=== PATIENT | female | born 1980 | race African-American/Black ===

== ENCOUNTER 2018-10-25 05:56 | Emergency (ER) | payer OTHER ==
[~2018-10-25] VITALS: Ht 167.6 cm; Wt 100.0 kg
[2018-10-25] MEDS ORDERED: NS 1,000 ML IV ONE (06:30)
[2018-10-25 07:02] LABS: BASO % 0.5 % (0.0-1.0); EOS # 0.2 10^3/uL (0.0-0.50); EOS % 3.2 % (0.0-3.0); HEMATOCRIT 38.3 % (36.0-47.0); HEMOGLOBIN 12.8 g/dl (12.0-15.5); LYMPH # 1.3 10^3/uL (1.5-4.5); LYMPH % 21.2 % (24.0-44.0); MEAN CORPUSCULAR HEMOGLOBIN 28.8 pg (27.0-33.0); MEAN CORPUSCULAR HGB CONC 33.4 g/dl (32.0-36.5); MEAN CORPUSCULAR VOLUME 86.3 fl (80.0-96.0); MONO # 0.4 10^3/uL (0.0-0.8); MONO % 6.3 % (0.0-5.0); NEUTROPHILS # 4.2 10^3/uL (1.8-7.7); NEUTROPHILS % 68.2 % (36.0-66.0); PLATELET COUNT, AUTOMATED 124 10^3/uL (150-450); RED BLOOD COUNT 4.44 10^6/uL (4.00-5.40); WHITE BLOOD COUNT 6.2 10^3/uL (4.0-10.0)
[2018-10-25 08:23] VITALS: BP 130/77
--- NOTE | 2018-10-25 08:44 | REPVR ---
EXAM: US Duplex Artery and Vein of the Abdominal and/or Reproductive Organs, Complete EXAM DATE/TIME: 10/25/2018 7:41 AM CLINICAL HISTORY: 38 years old, female; Signs and symptoms; Lmp or gestational age (in weeks): 17; Other: Vag bleeding; ; Additional info: Vaginal bleeding TECHNIQUE: Imaging protocol: Real-time duplex ultrasound scan of the arterial and venous flow of the abdominal and/or reproductive organs with B-mode, color Doppler flow and spectral waveform analysis. Complete exam. COMPARISON: No relevant prior studies available. FINDINGS: Right ovary: obscured by bowel gas. Left ovary: Normal waveforms. IMPRESSION: No evidence of left ovarian torsion. Right ovary is obscured by bowel gas. EXAM: US After First Trimester, Transabdominal EXAM DATE/TIME: 10/25/2018 7:41 AM CLINICAL HISTORY: 38 years old, female; Signs and symptoms; Lmp or gestational age (in weeks): 17; Other: Vag bleeding; ; Additional info: Vaginal bleeding TECHNIQUE: Imaging protocol: Real-time transabdominal obstetrical ultrasound of the maternal pelvis and a second or third trimester with image documentation. COMPARISON: No relevant prior studies available. FINDINGS: GESTATION: Gestation: Single viable intrauterine gestation. Heart rate: heart rate is 173 beats per minute. Presentation: Breech presentation. Placenta: Posterior low-lying placenta. Placental venous lakes Amniotic fluid: Amniotic fluid is normal for gestational age. Umbilical cord and insertion: Three-vessel umbilical cord. BIOMETRY: Estimated gestational age: 16 weeks 6 days. Estimated due date: 04/05/2019 Estimated weight: 184 g, 59th percentile. Biparietal diameter: 3.4 cm Head circumference: 13.7 cm Abdominal circumference: 11.5 cm Femur length: 2.4 cm MATERNAL: Uterus: Unremarkable. Cervix: Cervical length is 6.9 cm. Right adnexa: Right ovary is obscured by bowel gas. Left adnexa: Left ovary measures 6 x 4 x 4 cm. There is a complex 3 x 4.2 x 3.2 cm cyst containing internal low level echoes. IMPRESSION: Single viable intrauterine gestation of 16 weeks 6 days of age. Posterior low-lying placenta. Placental venous lakes. No evidence of placental abruption. Complex 3 x 4.2 x 3.2 cm cyst containing internal low level echoes. Electronically signed by: Darien Brunner On 10/25/2018 08:44:02 AM
--- NOTE | 2018-10-26 14:54 | ED PDOC ---
Post-Departure Follow-Up dr saenz faxed formal report of ob us for fu Izzy Gonzales MD October 26, 2018 14:54
== END 2018-10-25 08:48 | disposition home or self-care (01) ==
LOC: M ED 05:56
DX: O44.51 Low lying placenta with hemorrhage, first trimester (principal); Z3A.17 17 weeks gestation of pregnancy

== ENCOUNTER → 2019-01-25 | Outpatient (CLI) | payer OTHER ==
--- NOTE | 2019-01-25 14:35 | REP ---
OB ULTRASOUND: Real-time sonographic evaluation of gravid uterus performed utilizing transabdominal and endovaginal technique. There is a single living intrauterine gestation. estimated gestational age 30 weeks 2 days based on LMP, EDC 04/03/2019. Today's measurements indicate appropriate growth. BPD 71 mm = 28 weeks 5 days, 17th percentile HC 266 mm = 28 weeks 6 days, 20th percentile AC 248 mm = 29 weeks 0 days, 24th percentile Femur length 55 mm = 29 weeks 0 days, 23rd percentile HC/AC ratio 1.07, within normal range. Estimated weight 1315 grams, 15th percentile. Cervix is closed and measures 5.2 cm in length on transvaginal images. heart rate 152 beats per minute. Amniotic fluid within normal limits, LAURYN 12.4, within normal range of 8.9 to 23.5. Today's measurements indicate appropriate growth. SEEN/GROSSLY UNREMARKABLE Lateral ventricles Yes Posterior fossa Yes Upper lip Yes Four-chamber heart Yes LVOT Yes RVOT No Stomach Yes Cord insertion Yes Three vessel cord Yes Kidneys Yes Bladder Yes Spine Yes position: Vertex. Placenta: Posterior and grade 1-2 with no previa or abruption. Inferior margin of the placenta is approximately 3.5 cm from the internal cervical os. Electronically Signed by Brandon Rogers MD 01/26/2019 09:45 A
== END ==
LOC: M RAD 10:16
PROVIDERS: ATTEND Obstetrics & Gynecology
DX: Z34.83 Encounter for supervision of other normal pregnancy, third trimester (principal); Z3A.30 30 weeks gestation of pregnancy

== ENCOUNTER 2019-03-22 07:04 | Inpatient (IN) | payer OTHER ==
--- NOTE | 2019-03-15 18:14 | HPE ---
DATE OF ADMISSION: 03/22/2019 This lady is a 38-year-old 3, para 2, last menstrual period (LMP) 06/27/2018. Estimated date of confinement (EDC) is 03/24/2019, having an elective primary repeat section on 03/24/2019 with bilateral tubal ligation with a Filshie clip and possible repair of incisional hernia. This lady's risk factors are she has an advanced maternal age (AMA). She has chronic hypertension, class B diabetic on metformin, she has had two previous sections, and her body mass index (BMI) is 30.82 on early . Her past history is in September 2003 at 40 weeks. Had a primary section, 8 pounds 4 ounces. In 2015 and 39 weeks had a repeat section for a baby of 10 pounds. Presently, she is on metformin, aspirin 81 mg per day, labetalol 200 twice a day Her lab values indicate that she is AB positive, HIV negative, hepatitis negative, RPR negative, rubella immune, Varicella immune. Pap was HPV positive. Urine was negative. Gonorrhea and chlamydia are negative. Hemoglobin A1c's were running about 6.4. She had a 3-hour GTT. Fasting was 129, 1-hour was 214, 2-hour was 196, and 3-hour was 118. Thyroid was negative. A 28-week HIV test was negative. Her hemoglobin A1c in January was 5.5. Patient is booked for an elective repeat section and bilateral tubal ligation by Filshie clip. Her blood pressure today is 137/74, respirations 18, pulse 108, and symphysis fundus height is 36. heart rate is 125. Vertex presenting. The rest of the examination is unremarkable. She is normocephalic, atraumatic. Neck: Full range of motions. Pupils equal and reactive to light. Distal pulses symmetric. No evidence of deep vein thrombosis (DVT), pulmonary embolism (PE), or superficial phlebitis. Chest is clear bilaterally to bases. No wheezes or rhonchi. No costovertebral angle (CVA) tenderness. She has a category 1 strip and normal bowel sounds. She has an incisional scar on her abdomen from two previous sections. She has no rashes, lesions, or pruritus. No arthralgia or myalgia. No complaint of joint pain. No complaint of cough, wheezes, shortness of breath, or dyspnea on exertion. She is not bleeding. Neurologic complete. No incontinency, urgency, or frequency. No nausea, vomiting, diarrhea, or constipation. She is a class B diabetic on metformin. No other endocrine issues. 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 A Pap is negative. No evidence of sexually transmitted diseases (STDs). PAST MEDICAL HISTORY: 1. Chronic hypertension. 2. Gestational diabetes. PAST SURGICAL HISTORY 1. Two sections. 2. Mammogram reduction. 3. Dilatation and curettage (D and C). FAMILY HISTORY: Noncontributory. She does not smoke, drink, abuse drugs. There is no domestic violence. We discussed the risks and benefits of section, repeat, including hemorrhage, infection, perforation, , reoperation, remote possibility of blood transfusion, the remote possibility of hysterectomy, remote possibility of laceration, and/or admission to the intensive care unit (NICU) for sugar stabilization. Again, we discuss definitive as well as nondefinitive methods of control, including Depo Provera, Nexplanon, Mirena IUCD. She is not a candidate for oral contraceptives, and the patient has definitively made up her mind that she wants a tubal ligation, being that this is her third section and she has an AMA. We reviewed her sugars up-to-date, and they seem to be quite well controlled. After discussing risks and benefits, the patient expressed understanding. We had a 40-minute discussion with answering all questions, including incisional hernia repair and circumcision of her male infant. Medications were dispensed prior to her section, to be kept at home. The patient signed the consent form, and we are booked for 03/24/2019. edited: 03/22/2019 0939 robin ALBA
[~2019-03-22] VITALS: Ht 167.6 cm; Wt 105.4 kg
[2019-03-22] VITALS (13 sets, daily range): BP systolic 108–130; BP diastolic 54–79
[~2019-03-22 07:04] MED LIST: ASPI81TA85 PO; LABE100T36 PO; METF500T13 PO; PRENTAB55 PO
[2019-03-22] MEDS ORDERED: ceFAZolin SOD 2 GM in IV 1 EA IV ONE (08:30)
[2019-03-22] MEDS ORDERED: LACTATED RINGER'S 1000 ML IV ONE (08:30)
[2019-03-22] MEDS ORDERED: BUPIVACAINE HCL 0.25% 10 ML VIAL SC ONE (08:30)
[2019-03-22] MEDS ORDERED: ACETAMINOPHEN 650 MG SUPP PR ONE (08:30)
[2019-03-22] MEDS ORDERED: BICITRA 30ML SOLN UDC PO ONE (08:30)
[2019-03-22] MEDS ORDERED: MORPHINE PRES-FREE INJ 10 MG/10 ML VIAL (J2274) As Ordered ONE (08:43)
[2019-03-22 08:44] LABS: HEMATOCRIT 36.6 % (36.0-47.0); HEMOGLOBIN 11.9 g/dl (12.0-15.5); MEAN CORPUSCULAR HEMOGLOBIN 29.2 pg (27.0-33.0); MEAN CORPUSCULAR HGB CONC 32.5 g/dl (32.0-36.5); MEAN CORPUSCULAR VOLUME 89.9 fl (80.0-96.0); PLATELET COUNT, AUTOMATED 126 10^3/uL (150-450); RED BLOOD COUNT 4.07 10^6/uL (4.00-5.40); WHITE BLOOD COUNT 7.4 10^3/uL (4.0-10.0)
[2019-03-22] MEDS ORDERED: METOCLOPRAMIDE INJ 10MG/2ML VIAL (J2765) As Ordered ONE (08:44)
[2019-03-22] MEDS ORDERED: OXYTOCIN INJ 10 UNITS/ML VIAL (J2590) As Ordered ONE ×2 (08:45→11:10)
[2019-03-22] MEDS ORDERED: AZITHROMYCIN INJ 500 MG, VIAL MATE ADAPTER 1 EACH in D5W 250 ML IV ONE (09:00)
[2019-03-22] MEDS ORDERED: LR 1,000 ML IV SCH ×2 (09:30→12:45)
[2019-03-22] MEDS ORDERED: ONDANSETRON 4MG/2ML VIAL (J2405) IV PRN ×2 (10:05→12:45)
[2019-03-22] MEDS ORDERED: diphenhydrAMINE INJ 50MG/ML VIAL (J1200) IV PRN (10:05)
[2019-03-22] MEDS ORDERED: NALOXONE INJ 0.4 MG/1 ML VIAL (J2310) IV PRN ×2 (10:05)
[2019-03-22] MEDS ORDERED: NALBUPHINE HCL 10 MG/ML AMP (J2300) IV PRN ×2 (10:05→12:45)
[2019-03-22] MEDS ORDERED: KETAMINE HCL 200 MG/20 ML VIAL As Ordered ONE (10:34)
[2019-03-22] MEDS ORDERED: MIDAZOLAM INJ 2 MG/2 ML VIAL (J2250) As Ordered ONE (10:48)
[2019-03-22] MEDS ORDERED: PROPOFOL 200 MG/20 ML VIAL As Ordered ONE ×2 (10:48→10:58)
[2019-03-22] MEDS ORDERED: SUCCINYLCHOLINE 100 MG/5 ML SYRINGE (J0330) As Ordered ONE (10:49)
[2019-03-22] MEDS ORDERED: GLYCOPYRROLATE INJ 0.2 MG/ML 2 ML VIAL As Ordered ONE (10:58)
[2019-03-22 11:02] LABS: CORD GAS ABE V -3.6; CORD GAS HCO3 V 24.7 MEQ/L; CORD GAS PCO2 V 57.7 mmHg; CORD GAS PH V 7.25 UNITS; CORD GAS PO2 V 32.8 mmHg; CORD GAS SBC V 20.8 MEQ/L; CORD GAS TCO2 V 26.5 MEQ/L
[2019-03-22 11:04] LABS: CORD GAS ABE A -2.1; CORD GAS HCO3 A 27.9 MEQ/L; CORD GAS O2 SAT A 41.5 %; CORD GAS PCO2 A 72.4 mmHg; CORD GAS PH A 7.204 UNITS; CORD GAS PO2 A 20.4 mmHg; CORD GAS SBC A 21.3 MEQ/L; CORD GAS TCO2 A 30.1 MEQ/L
[2019-03-22] MEDS ORDERED: dexameTHASONE 4 MG/ML 1ML VIAL (J1100) As Ordered ONE (11:19)
[2019-03-22] MEDS ORDERED: KETOROLAC 60 MG/2 ML VIAL (J1885) As Ordered ONE (11:20)
[2019-03-22] MEDS ORDERED: ONDANSETRON 4MG/2ML VIAL (J2405) As Ordered ONE (11:20)
[2019-03-22] MEDS ORDERED: MOM 30ML SUSPENSION UDC PO PRN (12:00)
[2019-03-22] MEDS ORDERED: OXYTOCIN DRIP 30 UNITS in IV 1 EA IV ONE (12:00)
[2019-03-22] MEDS ORDERED: ANUSOL HC CREAM 30GM TOP PRN (12:00)
[2019-03-22] MEDS ORDERED: IBUPROFEN 600 MG TAB PO PRN (12:00)
[2019-03-22] MEDS ORDERED: ACETAMINOPHEN TAB 650MG DOSE (2X325MG) PO PRN (12:00)
[2019-03-22] MEDS ORDERED: ACETAMINOPHEN 500 MG TAB PO PRN (12:00)
[2019-03-22] MEDS ORDERED: RHOGAM 300 MCG (1500 IU) INJ (J2790) IM SCH (12:00)
[2019-03-22] MEDS ORDERED: MEASLES,MUMPS,RUBELLA VACCINE INJ (MMR-II) (90707) SC SCH (12:00)
[2019-03-22] MEDS ORDERED: OXYTOCIN INJ 10 UNITS/ML VIAL (J2590) IV ONE (12:00)
[2019-03-22] MEDS ORDERED: PERCOCET 5MG/325MG TAB PO PRN ×2 (12:00→12:45)
[2019-03-22] MEDS ORDERED: OXYTOCIN 30 UNITS IN 0.9% NaCl 500ML IV BAG (J2590) As Ordered ONE (12:10)
[2019-03-22] MEDS ORDERED: HYDROMORPHONE HCL 0.5 MG/ 0.5 ML SYRINGE (J1170 PER 1) IV PRN (12:45)
[2019-03-22] MEDS ORDERED: MEPERIDINE INJ 25 MG/ML VIAL (J2175) IV PRN (12:45)
[2019-03-22] MEDS ORDERED: fentaNYL 100 MCG/2 ML INJECTION (J3010) IV PRN (12:45)
[2019-03-22] MEDS: METOCLOPRAMIDE INJ 10MG/2ML VIAL (J2765) IV PRN ×2 (14:05→21:12)
[2019-03-22] MEDS ORDERED: metFORMIN (GLUCOPHAGE) 500 MG TAB PO SCH (18:00)
[2019-03-22] MEDS: KETOROLAC 30 MG/ML VIAL (J1885) IV SCH ×2 (18:05→23:49)
[2019-03-22] MEDS: LABETALOL 100 MG TAB PO SCH (21:03)
[2019-03-22] MEDS: DOCUSATE SODIUM 100 MG CAP PO PRN (23:49)
[2019-03-23] VITALS (9 sets, daily range): BP systolic 82–131; BP diastolic 45–70
[2019-03-23] MEDS: KETOROLAC 30 MG/ML VIAL (J1885) IV SCH (06:04)
[2019-03-23 06:29] LABS: HEMATOCRIT 22.9 % (36.0-47.0); HEMOGLOBIN 7.4 g/dl (12.0-15.5); MEAN CORPUSCULAR HEMOGLOBIN 29.5 pg (27.0-33.0); MEAN CORPUSCULAR HGB CONC 32.3 g/dl (32.0-36.5); MEAN CORPUSCULAR VOLUME 91.2 fl (80.0-96.0); PLATELET COUNT, AUTOMATED 120 10^3/uL (150-450); RED BLOOD COUNT 2.51 10^6/uL (4.00-5.40); WHITE BLOOD COUNT 11.7 10^3/uL (4.0-10.0)
[2019-03-23] MEDS: LABETALOL 100 MG TAB PO SCH (09:00)
[2019-03-23] MEDS: PRENATAL VITAMINS CHEWABLE TABLET PO SCH (09:23)
[2019-03-23] MEDS: PERCOCET 5MG/325MG TAB PO PRN ×2 (10:06→17:35)
--- NOTE | 2019-03-23 10:33 | IPN ---
DATE: 03/23/2019 This lady had a repeat section and in her first day she was dry, dehydrated, very concentrated urine. She was given a bolus of IV fluids. She was also diagnosed as chronic hypertension and has been on labetalol 100 b.i.d. However, her blood pressures now are 90/46 and 98/50 and she has symptomatology of dizziness and syncopal type episodes, related both to her dehydration and the fact that she has been maintained on her labetalol. We have elected to bolus her fluids and discontinue it for the present time her labetalol. She also has some anemia issues presently. Her hemoglobin is 7.4, hematocrit 22.9 and platelets are 120. On reevaluation of her incision, which had a little leak on the right side with a pressure dressing this morning removed, there is no evidence of active bleeding and the pressure dressing has been replaced. Her Fuchs catheter will be removed to get her up and ambulate. We will repeat her CBC at noon, possibility of need for blood transfusion could be entertained. At the present time, she is hypotensive secondary to possibly dehydration and blood loss. However she is otherwise stable and on examination her abdomen is soft, four quadrant bowel sounds are noted. Incision is clean and dry. Lochia is moderate. She is wearing her sequentials and will reassess the patient after her CBC at noon.
[2019-03-23 12:36] LABS: HEMATOCRIT 22.4 % (36.0-47.0); HEMOGLOBIN 7.2 g/dl (12.0-15.5); MEAN CORPUSCULAR HEMOGLOBIN 28.3 pg (27.0-33.0); MEAN CORPUSCULAR HGB CONC 32.1 g/dl (32.0-36.5); MEAN CORPUSCULAR VOLUME 88.2 fl (80.0-96.0); PLATELET COUNT, AUTOMATED 134 10^3/uL (150-450); RED BLOOD COUNT 2.54 10^6/uL (4.00-5.40); WHITE BLOOD COUNT 12.1 10^3/uL (4.0-10.0)
[2019-03-23] MEDS: IBUPROFEN 800 MG TAB PO SCH ×2 (14:07→20:58)
[2019-03-23] MEDS: DOCUSATE SODIUM 100 MG CAP PO PRN (20:57)
[2019-03-24] VITALS (13 sets, daily range): BP systolic 128–150; BP diastolic 74–91
[2019-03-24] MEDS: IBUPROFEN 800 MG TAB PO SCH ×3 (05:11→20:58)
[2019-03-24] MEDS: PERCOCET 5MG/325MG TAB PO PRN ×3 (05:33→23:05)
[2019-03-24] MEDS: LABETALOL 100 MG TAB PO SCH ×2 (09:41→20:59)
[2019-03-24] MEDS: PRENATAL VITAMINS CHEWABLE TABLET PO SCH (09:41)
--- NOTE | 2019-03-24 13:50 | IPN ---
DATE: 03/24/2019 This lady is postoperative day #2 after having a repeat section and ruptured uterus and acute blood loss. Her hemoglobin dropped down to 7.2, hematocrit 24.4 and platelets were 134. That has come up from platelets of 126 and hemoglobin initially started 11.90, hematocrit 36.6. She has been asymptomatic with the low hemoglobin and we discussed blood transfusion with the patient and she is willing to accept a blood transfusion. We discussed the risks and benefits obviously the benefits are to improve her vital signs and her inability to mobilize without feeling dizzy and having syncope. We discussed the risks of blood transfusion, blood transfusion reaction, the remote possibility of infectious diseases. However, the blood is very well tested and the risk is minimal. The patient is willing to accept blood transfusion of 2 units. We will repeat her CBC 2-3 hours after the second unit. The second issue is her blood pressure started to creep up again. We have held her labetalol but presently her blood pressure is coming up and the last one was 140/91, reassessed 133/80. We are going to reinstitute the labetalol at 100 mg twice a day in order to stabilize her blood pressure. We again had a review of metformin. It was not really necessary after delivery. However, she thought taking metformin would decrease her incidence of getting diabetes. However, she was a gestational diabetic prior and so we have discontinued the metformin at the present time. Other than that incision is clean and dry. Bowel sounds are noted. The uterus is 2 below. Lochia is moderate. She is all concerned about not having a bowel movement. She is only 2 days postop and has not had anything to eat and is presently on narcotics which increases her risk of constipation. She is presently getting Colace and Milk of Magnesia and with the activity of her bowel sounds, we anticipate she will have a bowel movement in the near future. The patient expresses understanding of risks and benefits. We had a 20-minute discussion. The other issue was circumcision of her male. He has got an elevated bilirubin. We are waiting for that to come down to normalize before encouraging a circumcision.
[2019-03-24 14:28] LABS: HEMATOCRIT 24.9 % (36.0-47.0); HEMOGLOBIN 8.1 g/dl (12.0-15.5); MEAN CORPUSCULAR HEMOGLOBIN 28.9 pg (27.0-33.0); MEAN CORPUSCULAR HGB CONC 32.5 g/dl (32.0-36.5); MEAN CORPUSCULAR VOLUME 88.9 fl (80.0-96.0); PLATELET COUNT, AUTOMATED 116 10^3/uL (150-450)
[2019-03-25 04:42] VITALS: BP 116/73
[2019-03-25] MEDS: IBUPROFEN 800 MG TAB PO SCH ×2 (04:42→14:55)
[2019-03-25] MEDS ORDERED: COLA100C5 PO (08:54)
[2019-03-25] MEDS ORDERED: PROC1CRE5 TOP (08:54)
[2019-03-25] MEDS ORDERED: LABE10TAB PO (08:54)
[2019-03-25] MEDS ORDERED: IBUP80TA PO (08:54)
[2019-03-25] MEDS ORDERED: ACET-683 PO (08:54)
[2019-03-25] MEDS ORDERED: PERCOCET PO (08:54)
[2019-03-25] MEDS: PRENATAL VITAMINS CHEWABLE TABLET PO SCH (09:47)
[2019-03-25 09:48] VITALS: BP 116/73
[2019-03-25] MEDS: LABETALOL 100 MG TAB PO SCH (09:48)
[2019-03-25] MEDS: PERCOCET 5MG/325MG TAB PO PRN ×2 (09:49→18:13)
--- NOTE | 2019-03-25 16:27 | DSES ---
DATE OF ADMISSION: 03/22/2019 DATE OF DISCHARGE: 03/25/2019 This lady is a 38-year-old, 3, now para 3 was admitted for elective repeat section and bilateral tubal ligation by Filshie clip for satisfied parity. She had a repeat section. Unfortunately, she had a ruptured uterus at the time of section, massive adhesions. We were unable to do the tubal ligation because of the extensiveness of the scarring and adhesions and the rupture of the uterus. She delivered a live male 8 pounds 13 ounces (3990 grams) score of 2, 7, and 9. Cord was around neck times one. It was a vacuum extraction because of the tightness and the massive adhesions. The arterial pH was 7.20, base excess -2.1, venous pH 7.25, base excess -3.6. Her other issues are she is an AMA, chronic hypertension, class B diabetic in on metformin, and her body mass index (BMI) is over 30. Her admitting hemoglobin was 11.9, hematocrit 36.6 and platelets were 126. Discharge hemoglobin after 2 units of packed cells was 8.1, hematocrit 24.9 and platelets were 116, and she was asymptomatic. Her blood pressure on discharge was 116/73, respirations 20. Temperature was 97.9 and pulse was 82. She is on her metformin 100 mg twice a day. We discussed phlebitis, cystitis, mastitis, endometritis, cellulitis, diet, exercise, pain management, perineal, breast and wound care. The rest of examination unremarkable. Normocephalic, atraumatic. Neck full range of motion. Pupils equal and reactive to light. Distal pulses are symmetric. No evidence of deep venous thrombosis (DVT), pulmonary embolism (PE) or superficial phlebitis. Chest is clear bilaterally at bases. No wheezes or rhonchi. No costovertebral angle (CVA) tenderness. Abdomen soft, four quadrant bowel sounds. Incision is clean and dry and lochia is moderate. No rashes, lesions or pruritus. No arthralgia, myalgia. No complaint of joint pain. No complaint of cough, wheeze, shortness of breath or dyspnea on exertion. No nausea, vomiting or diarrhea. She does have some constipation, which she is taking Colace and Milk of Magnesia, which she will continue the Colace at home. In summary, we have a term gestation delivered a live male . We will review options for permanent control at her 6-8 week checkup. She was given all her medications dispensed at bedside. She has a 2 week incision check, 6 week check. All questions were answered. 20 minute discussion. Patient was discharged improved. edited: 03/28/2019 0717 tkf PARTH
[2019-03-25] MEDS: DOCUSATE SODIUM 100 MG CAP PO PRN (16:46)
[2019-03-25] MEDS ORDERED: INFLUENZA QUADRIVALENT PF VACCINE 0.5ML SYRINGE (90686) IM ONE (18:00)
--- NOTE | 2019-03-29 20:55 | IPN ---
DATE: 03/22/2019 This patient and requested circumcision of their male after discussing the risks and benefits of circumcision, the medical and nonmedical indications, penile block, aftercare and bleeding, patient expressed understanding of penile block, aftercare, signed the consent form, all questions were answered, 20-minute discussion.
--- NOTE | 2019-03-29 21:05 | IPN ---
DATE: 03/22/2019 Nurses called and requested my presence in regards to postop section patient who had some bleeding coming from the right side of her incision. After reviewing the incisional site which appeared to be just a bit oozy we applied a pressure dressing on that area and circled the area that it had perforated to and we will reevaluate it in one hour's time. There was no excessive amount of bleeding and it was only a small area in the corner of that right incisional site.
--- NOTE | 2019-03-30 07:51 | RO ---
DATE OF PROCEDURE: 03/22/2019 This lady is a 38-year-old 3, para 2 who was here for a repeat section and bilateral tubal ligation by Filshie clip and also repair of an incisional hernia. This lady has risk factors that she was an AMI, chronic hypertension, class B diabetic on metformin. She had two previous sections. Her BMI is 30.82. When she came in and she was booked for the elective repeat section she was presently having contractions and having some uterine irritability. Category 1 strip. Therefore, she was taken back and prepped and draped in the supine position, Fuchs catheter in the bladder draining clear urine. PREOPERATIVE DIAGNOSES: Repeat section. Satisfied parity. Bilateral tubal ligation by Filshie clip. POSTOPERATIVE DIAGNOSES: Repeat section. Ruptured uterus. Frozen pelvis. No tubal ligation was performed. ANESTHESIA: Initially was spinal plus general plus local anesthetic for intraperitoneal procedures. ESTIMATED BLOOD LOSS: 500 mL. SURGEON: Leno Nascimento MD OVER THE HORIZON TARGETING SUPERVISOR: Certified nurse neon molder, Missy Alvarez. After adequate anesthesia, prepped, draped in the supine position, the patient was demonstrating extreme pain with her spinal despite the fact that there was some spot areas where it did work, however it was elected to have her under general anesthetic. After general anesthesia performed she was already prepped, draped in supine position, we excised the old Pfannenstiel scar including the indentation where the hernial area was done. We were through the fascia, which was quite thick, and we were not able to demonstrate any interface between the fascia and the anterior uterine wall. We only were able to visualize where the bladder was, we could not find anything else, we could not find a plane in which to work with. Therefore, we did a high area incision to try and make ability to see within the cavity and once we were able to define a plane, when we opened that up the uterus had ruptured. There was bulging membranes and we could see the head protruding through the bulging membranes. We then did an ARM was draining clear liqua. We used a single blade of the forceps to put underneath the baby's head to lift it up to give us some stability and we delivered a live male infant weighing 3990 grams, 8 pounds 13 ounces, scores were 2, 7 and 9. Nuchal cord was once tight. Arterial pH 7.2, base excess -2.1, venous pH 7.25, base excess -3.6. Dr. Matta in attendance for resuscitation. With that done we manually removed the placenta, it was quite calcified. There was no issue with the removal. We did a sweeping of the internal aspect of the uterus and it swept clean. We identified the anterior wall, the two angles, and we are eventually able to identify the lower part of the segment which was totally incorporated and incarcerated in adhesions. We over sewed the incisional site in two layers. We then put interrupted figure-of-8 in areas where there was some excessive bleeding. With that done we were looking for the tubes, however, because of the solidification of the adhesions up to the fundus we were not able to develop a plane. We could not see the tubes in any case, and so that part of the procedure was abandoned. With instrument and pad count correct, and again, not being able to the tubes or the ovaries, we then found some fascial areas to close and we closed over the fascia in interrupted figure-of-8 with good hemostasis and intact with no evidence of defect. We then undermined the fat in order to try and make a reasonable incision closure with skin and with subcuticular. We closed the skin in the usual fashion using Marcaine 0.25% 10 mL to the incisional site, Telfa and spray and the patient was taken back to the recovery room in good condition.
== END 2019-03-25 18:30 | disposition home or self-care (01) | DRG 771 ==
LOC: EDBD → M LDI 07:04 → M OBS 12:55
PROVIDERS: ADMIT Obstetrics & Gynecology; ATTEND Obstetrics & Gynecology
PROC: 30233N1 Transfusion of Nonautologous Red Blood Cells into Peripheral Vein, Percutaneous Approach (ICD-10-PCS; 2019-03-22)
PROC: 10D00Z1 Extraction of Products of Conception, Low, Open Approach (ICD-10-PCS; principal; 2019-03-22 09:30)
DX: O34.211 Maternal care for low transverse scar from previous cesarean delivery (principal); O71.1 Rupture of uterus during labor; O10.02 Pre-existing essential hypertension complicating childbirth; O24.415 Gestational diabetes mellitus in pregnancy, controlled by oral hypoglycemic drugs; Z79.84 Long term (current) use of oral hypoglycemic drugs; Z3A.38 38 weeks gestation of pregnancy; Z37.0 Single live birth; O69.1XX0 Labor and delivery complicated by cord around neck, with compression, not applicable or unspecified; O99.89 Other specified diseases and conditions complicating pregnancy, childbirth and the puerperium

== ENCOUNTER → 2019-03-30 | Outpatient (CLI) | payer OTHER ==
[~2019-03-30] MED LIST changes: +ACET-683 PO; +AMLO5TAB6 PO; +COLA100C5 PO; +IBUP80TA PO; +LABE10TAB PO; +MAXZTAB PO; +PERCOCET PO; +PROC1CRE5 TOP
--- NOTE | 2019-03-30 11:08 | REP ---
CHEST, TWO VIEWS: No comparison. Two views of the chest are performed. There is mild cardiomegaly. There appears to be some mild basilar interstitial edema with tiny bilateral pleural effusions. No consolidating infiltrate is seen. Mediastinal silhouette appears unremarkable. Visualized osseous structures are intact. IMPRESSION: Mild cardiomegaly with mild basilar interstitial edema and tiny effusions. Electronically Signed by Brandon Rogers MD 04/01/2019 12:42 A
== END ==
LOC: EDBD → M RAD 10:13 → M LAB 10:13
PROVIDERS: ATTEND Obstetrics & Gynecology
DX: R91.8 Other nonspecific abnormal finding of lung field (principal); R06.02 Shortness of breath; I51.7 Cardiomegaly

== ENCOUNTER 2019-03-31 16:55 | Inpatient (IN) | payer OTHER ==
[~2019-03-31] VITALS: Ht 165.1 cm; Wt 105.2 kg
[~2019-03-31 16:55] MED LIST changes: -AMLO5TAB6 PO; -MAXZTAB PO
[2019-03-31] MEDS ORDERED: MAXZTAB PO (17:04)
[2019-03-31 18:08] LABS: BASO % 0.4 % (0.0-1.0); EOS # 0.1 10^3/uL (0.0-0.5); EOS % 1.3 % (0.0-3.0); HEMATOCRIT 33.4 % (36.0-47.0); HEMOGLOBIN 10.5 g/dl (12.0-15.5); LYMPH # 1.4 10^3/uL (1.5-5.0); LYMPH % 19.8 % (24.0-44.0); MEAN CORPUSCULAR HEMOGLOBIN 28.5 pg (27.0-33.0); MEAN CORPUSCULAR HGB CONC 31.4 g/dl (32.0-36.5); MEAN CORPUSCULAR VOLUME 90.8 fl (80.0-96.0); MONO # 0.6 10^3/uL (0.0-0.8); MONO % 8.1 % (0.0-5.0); NEUTROPHILS # 4.9 10^3/uL (1.5-8.5); NEUTROPHILS % 68.2 % (36.0-66.0); PLATELET COUNT, AUTOMATED 224 10^3/uL (150-450); RED BLOOD COUNT 3.68 10^6/uL (4.00-5.40); WHITE BLOOD COUNT 7.1 10^3/uL (4.0-10.0)
[2019-03-31 18:15] LABS: ALT/SGPT 81 U/L (12-78); BILIRUBIN,DIRECT 0.2 MG/DL (0.0-0.2); BILIRUBIN,TOTAL 0.9 MG/DL (0.2-1.0); BLOOD UREA NITROGEN 10 MG/DL (7-18); CALCIUM LEVEL 8.9 MG/DL (8.5-10.1); CARBON DIOXIDE LEVEL 27 MEQ/L (21-32); CHLORIDE LEVEL 106 MEQ/L (98-107); GLOMERULAR FILTRATION RATE > 60.0 (>60); GLUCOSE, FASTING 98 MG/DL (70-100); MAGNESIUM LEVEL 1.8 MG/DL (1.8-2.4); POTASSIUM SERUM 3.7 MEQ/L (3.5-5.1); SODIUM LEVEL 141 MEQ/L (136-145); TOTAL PROTEIN 6.5 GM/DL (6.4-8.2)
[2019-03-31] MEDS ORDERED: ISOVUE-370 76% 100ML VIAL (Q9967) As Ordered ONE (18:22)
--- NOTE | 2019-03-31 19:22 | REPVR ---
PROCEDURE INFORMATION: Exam: CT Angiography Chest With Contrast Exam date and time: 03/31/2019 5:59 PM Clinical history: 38 years old, female; Shortness of breath; Additional info: SOB; R/O pe vs chf TECHNIQUE: Imaging protocol: Computed tomographic angiography of the chest with intravenous contrast. 3D rendering: MIP reconstructed images were created and reviewed. Radiation optimization: All CT scans at this facility use at least one of these dose optimization techniques: automated exposure control; mA and/or kV adjustment per patient size (includes targeted exams where dose is matched to clinical indication); or iterative reconstruction. Contrast material: ISOVUE 370; Contrast volume: 75 ml; Contrast route: IV; COMPARISON: CR Chest, 2 view PA, Lat 03/30/2019 10:26 AM FINDINGS: Pulmonary arteries: There is opacification of the pulmonary arteries with no evidence of pulmonary embolus. Aorta: The aorta is normal in size however it is not opacified and therefore cannot be completely evaluated. Lungs: There is hazy interstitial density throughout both lungs. This could be the result of chronic or acute interstitial lung disease. Interstitial lung disease includes allergic pneumonitis, chemical pneumonitis, histiocytosis, bacterial pneumonitis, opportunistic infection, UIP and DIP. Pleural space: Small right pleural effusion. Heart: There is cardiomegaly. There is no pericardial effusion. Lymph nodes: There are multiple small lymph nodes right and left axilla. There is no evidence of mediastinal lymphadenopathy. IMPRESSION: 1. No evidence of pulmonary embolus. 2. Suspect cardiomegaly. 3. Patchy and hazy areas of interstitial density throughout all aspects of the lung suspicious for acute or chronic interstitial lung disease as discussed above. Electronically signed by: Tristan Burks On 03/31/2019 19:22:26 PM
[2019-03-31] MEDS ORDERED: LIDOCAINE 2% 5ML JELLY UROJET TOP ONE (20:00)
[2019-03-31] MEDS ORDERED: CALCIUM GLUCONATE 1,000 MG in D5W MINI-BAG PLUS 100 ML IV PRN (20:45)
[2019-03-31] MEDS ORDERED: MAG Sulf (L&D) 4 GM/100 ML 4 GM in IV 1 EA IV ONE (20:45)
--- NOTE | 2019-03-31 20:59 | HPEPDOC ---
General Date of Admission Mar 31, 2019 at 20:37 Date of Service: Mar 31, 2019 Attending Physician: Tiki Portillo MD Chief Complaint Shortness of breathe Source: Patient Exam Limitations: No limitations Timing/Duration: Day(s) Severity: Moderate Associated Symptoms: Headaches History of Present Illness OB considerations: CHTN, on Labetolol 100mg BID Maxide added 03/30/19 GDMA2, on Metformin during 38 y/o POD#9 s/p RLTCS with BTL on 22Mar2019 complicated by uterine rupture and PPH requiring blood transfusion presenting to ED for shortness of breathe. Patient was seen by Dr. Greene yesterday with the same complaint, and notable pitting edema to her knees. Her lungs were clear to auscultation at that time, at she was started on Maxide with plan for close interval followup. A CXR was ordered, which resulted with mild cardiomegaly, mild basilar interstitial edema with bilateral small pleural effusions. No consolidating infiltrate. Patient called the triage nurse on , noting continued significant shortness of breathe and asking about CXR results. Per RN report, patient sounded significantly out of breathe on the phone. Upon review of results, recommended patient present to ED for evaluation. Upon evaluation in ED, patient reports significant shortness of breathe with standing. She endorses a 6/10 frontal headache, which has been present since the day of discharge from the hospital and waxes and wanes. She reports she does not usually have a headache. Patient denies visual changes or RUQ pain. Patient notes that she took her Labetalol and Maxide this morning. She reports she usually takes it at 0900 and 2100, however, took her evening dose early this evening in the ED when her BP upon arrival was elevated. Patient notes that she is bottle feeding. Home Medications Scheduled Labetalol HCl (Labetalol HCl) Unknown Strength Tablet, 100 MG PO BID, (Reported) [id number]/Iron Fum/Folic/Docusate ( 19 Tablet) 1 Each Tablet, 1 TAB PO DAILY, (Reported) Triamterene/Hydrochlorothiazid (Maxzide 37.5 mg-25 mg Tablet) 1 Each Tablet, 1 TAB PO DAILY, (Reported) Scheduled PRN Docusate Sodium (Colace) 100 Mg Capsule, 100 MG PO QHSP PRN for CONSTIPATION Hydrocortisone (Proctozone-Hc) 30 Gm Crm.pe.breana, 0 DOSE TOP Q4HP PRN for DISCOMFORT Oxycodone/Acetaminophen (Oxycodone-Acetaminophen 5-325) 1 Each Tablet, 1 TAB PO Q4HP PRN for MILD PAIN (PS 1-4) Allergies Coded Allergies: No Known Allergies (Unverified , 03/17/19) Past Medical History Medical History CHTN GDMA2, suspected Class B Surgical History LTCS x3 D&C Family History Significant Family History: Hypertension Social History * Smoker: Denies Alcohol: Denies Drugs: denies Psychosocial History: No pertinent psych hx 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 Thursday A-FIB/CHADSVASC A-FIB History Current/History of A-Fib/PAF?: No Current PO Anticoag Therapy: No Age/Risk Factor Scoring CHADSVASC: CHADSVASC Response (Comments) Value Age Risk Factor Age < 65 years old 0 Gender Risk Factor Female 1 Hx of CHF No 0 Hx of HTN Yes 1 Hx of Stroke/TIA/or VTE No 0 Hx of Diabetes No 0 Hx of Vascular Disease No 0 Total 2 Treatment Treatment ordered: NONE Reason Anticoagulant not given: Current bleeding Review of Systems Constitutional: Denies: Chills, Fever ENT: Reports: Head Aches Pulmonary: Reports: Dyspnea Gastrointestinal: Denies: Nausea, Vomiting, Abdominal Pain, Diarrhea, Constipation Genitourinary: Denies: Dysuria, Frequency Physical Examination General Exam: Positive: Alert, Cooperative Eye Exam: Positive: PERRLA ENT Exam: Positive: Mucous membr. moist/pink Neck Exam: Positive: Supple Chest Exam: Positive: Other (Crackles) Heart Exam: Positive: Rate Normal Abdomen Exam: Positive: Soft; Negative: Tenderness Extremity Exam: Positive: Edema (3+ pitting to knees) Neuro Exam: Positive: Other (3+ reflexes bilateral patella) Vital Signs Vital Signs Date Time Temp Pulse Resp B/P (MAP) Pulse Ox O2 Delivery O2 Flow Rate FiO2 03/31/19 19:59 99.7 64 18 155/96 (115) 97 03/31/19 17:47 Room Air Laboratory Data Labs 24H Laboratory Tests 2 03/31/19 17:38: Immature Granulocyte % (Auto) 2.2, Neutrophils (%) (Auto) 68.2H, Lymphocytes (%) (Auto) 19.8L, Monocytes (%) (Auto) 8.1H, Eosinophils (%) (Auto) 1.3, Basophils (%) (Auto) 0.4, Neutrophils # (Auto) 4.9, Lymphocytes # (Auto) 1.4L, Monocytes # (Auto) 0.6, Eosinophils # (Auto) 0.1, Basophils # (Auto) 0.0, Nucleated Red Blood Cells % (auto) 0.3H, Urine Color YELLOW, Urine Appearance CLEAR, Urine pH 6.0, Urine Specific [place] 1.005, Urine Protein NEGATIVE, Urine Glucose (UA) NEGATIVE, Urine Ketones NEGATIVE, Urine Blood 3+H, Urine Nitrite NEGATIVE, Urine Bilirubin NEGATIVE, Urine Urobilinogen 0.2, Urine Leukocyte Esterase NEGATIVE, Urine WBC (Auto) 2, Urine RBC (Auto) 8H, Urine Hyaline Casts (Auto) 0, Urine Bacteria (Auto) NEGATIVE, Urine Squamous Epithelial Cells 0, Urine Sperm (Auto) , Anion Gap 8, Glomerular Filtration Rate > 60.0, Uric Acid 4.0, Calcium Level 8.9, Magnesium Level 1.8, Total Bilirubin 0.9, Direct Bilirubin 0.2, Aspartate Amino Transf (AST/SGOT) 67H, Alanine Aminotransferase (ALT/SGPT) 81H, Alkaline Phosphatase 121H, Total Protein 6.5, Albumin 3.0L, Albumin/Globulin Ratio 0.86L CBC/BMP Laboratory Tests 03/31/19 17:38 Assessment/Plan 38y/o POD#9 s/p RLTCS/BTL admitted with shortness of breathe/pulmonary edema with concern for CHTN with superimposed pre-eclampsia with severe features. Differential includes cardiomyopathy, though new onset severe range BPs difficult to control on baseline meds, elevated LFTs argue for pre-eclampsia picture. -Admit to L&D -Magnesium Sulfate 4g bolus followed by 2g/hr for seizure prophylaxis -Neuro checks q4-6 hours -Strict I&Os -Regular diet -IV antihypertensives as indicated for BP > 160/110. Will continue Labetalol 100mg BID. -Plan for Lasix 10mg x1 -Labs q12 hours -Will get BNP to assess for cardiomyopathy given symptoms and cardiomegaly. Will likely obtain echo if elevated. -Motrin and Tylenol, Oxycodone PRN for pain control Plan / VTE VTE Prophylaxis Ordered?: Yes Plan IVF: Initiate (with magnesium, no extra fluids), Discontinue Diet: Continue Current Activity: Continue Current Respiratory: Pulse Ox on Room Air Diagnostics: Repeat Labs in AM Anticipated Discharge: Home Tiki Portillo MD Mar 31, 2019 20:59
[2019-03-31] MEDS: MAG Sulf (OBGYN) 20GM/500ML 20,000 MG in IV 1 EA IV SCH (21:38)
[2019-03-31 21:41] LABS: NT-PRO BNP 913 PG/ML (<125)
[2019-03-31 22:33] VITALS: BP 159/96
[2019-03-31 22:35] LABS: CREATININE,RANDOM URINE < 13.0 MG/DL; TOTAL PROTEIN,RANDOM URINE 7.6 MG/DL (0.0-12.0)
[2019-03-31] MEDS ORDERED: METOCLOPRAMIDE 10 MG TAB PO ONE (23:00)
[2019-03-31] MEDS ORDERED: oxyCODONE 5MG TAB PO PRN (23:00)
[2019-03-31] MEDS ORDERED: FUROSEMIDE 20 MG TAB PO ONE (23:00)
[2019-04-01] VITALS (23 sets, daily range): BP systolic 124–166; BP diastolic 73–104
[2019-04-01] MEDS: ACETAMINOPHEN 500 MG TAB PO PRN ×3 (00:05→12:19)
[2019-04-01] MEDS ORDERED: LR 1,000 ML IV SCH (02:30)
--- NOTE | 2019-04-01 04:22 | IPNPDOC ---
Text Note Date of Service The patient was seen on 04/01/19. NOTE Ms Blair is a 31y/o s/p RLTCS on 15Oct admitted for SI pre-e w/ SF. Edis saldaña received 10mg Lasix x1 this evening for pulmonary edema. Patient reports that she can take a deeper breathe. Of note, patient most comfortable laying upright in bed. Patient reports return of her frontal headache, requests more Tylenol. Otherwise denies visual changes, RUQ pain. VS Reviewed: Normotensive to mild range. Gen: Drowsy, arousable Resp: Improvement in prior crackles, taking deeper breaths CV: RRR Ext: 2+ reflexes bilaterally. No clonus. Continued pitting edema. Mag @ 2g/hr UOP: 150cc/hr for last 4 hours A/p: 31y/o with SI pre-eclampsia without SF, on mag sulfate for seizure prophylaxis with no evidence of toxicity -Labs at 0500 -Mag checks q4-6 hours -Will reassess tomorrow for repeat LASIX dose -Will plan for echo tomorrow due to edema, elevated BNP, cardiomegaly though suspect pre-eclampsia is cause of symptoms -Labetalol 100mg PO in the AM, IV antihypertensives as indicated for BP >160/110 VS,Fishbone, I+O VS, Fishbone, I+O Laboratory Tests 03/31/19 17:38 Vital Signs Date Time Temp Pulse Resp B/P (MAP) Pulse Ox O2 Delivery O2 Flow Rate FiO2 04/01/19 03:06 78 139/80 (99) 04/01/19 02:07 16 97 03/31/19 22:33 98.6 03/31/19 22:14 Room Air I&O- Last 24 Hours up to 6 AM 04/01/19 05:59 Intake Total 700 ml Output Total 2000 ml Balance -1300 ml Tiki Portillo MD Apr 01, 2019 04:21
[2019-04-01 04:49] LABS: HEMATOCRIT 35.4 % (36.0-47.0); HEMOGLOBIN 11.2 g/dl (12.0-15.5); MEAN CORPUSCULAR HEMOGLOBIN 28.6 pg (27.0-33.0); MEAN CORPUSCULAR HGB CONC 31.6 g/dl (32.0-36.5); MEAN CORPUSCULAR VOLUME 90.5 fl (80.0-96.0); PLATELET COUNT, AUTOMATED 220 10^3/uL (150-450); RED BLOOD COUNT 3.91 10^6/uL (4.00-5.40)
[2019-04-01 05:26] LABS: ALT/SGPT 77 U/L (12-78); BILIRUBIN,TOTAL 0.9 MG/DL (0.2-1.0); BLOOD UREA NITROGEN 7 MG/DL (7-18); CALCIUM LEVEL 7.8 MG/DL (8.5-10.1); CARBON DIOXIDE LEVEL 26 MEQ/L (21-32); CHLORIDE LEVEL 106 MEQ/L (98-107); CREATININE FOR GFR 0.68 MG/DL (0.55-1.30); GLOMERULAR FILTRATION RATE > 60.0 (>60); GLUCOSE, FASTING 108 MG/DL (70-100); POTASSIUM SERUM 3.5 MEQ/L (3.5-5.1); SODIUM LEVEL 142 MEQ/L (136-145); TOTAL PROTEIN 6.6 GM/DL (6.4-8.2)
[2019-04-01] MEDS: MAG Sulf (OBGYN) 20GM/500ML 20,000 MG in IV 1 EA IV SCH ×2 (06:37→16:37)
[2019-04-01] MEDS ORDERED: LABETALOL 100 MG TAB PO SCH (09:00)
[2019-04-01] MEDS: DYAZIDE 37.5/25 CAP (TRIAM/HCTZ) PO SCH (09:00)
--- NOTE | 2019-04-01 09:04 | IPNPDOC ---
Text Note Date of Service The patient was seen on 04/01/19. NOTE Ms Blair is a 38y/o s/p RLTCS on 15Oct admitted for SI pre-e w/ SF. Edis saldaña received 10mg Lasix PO x1 overnight with excellent urine output response. This morning, patient is much improved. She reports that her headache has resolved. She is able to deeply inhale without difficulty. Her leg swelling has gone down significantly. VS Reviewed: Normotensive to mild range. Gen: Alert and oriented Resp: CTAB, no crackles, wheezes or rhonchi CV: RRR, no murmurs, rubs or gallops Abd: Incision clean, intact with mild serosanguinous oozing. Area of redness on skin around fundus without expansion in area, not warm to touch. Ext: 2+ reflexes bilaterally. No clonus. Great improvement in bilateral edema. Mag @ 2g/hr UOP: >200cc/hr for last 4 hours A/p: 38y/o with SI pre-eclampsia without SF, on mag sulfate for seizure prophylaxis with no evidence of toxicity -Labs at 0500: Demonstrate stable LFTs -Mag checks q4-6 hours -Maxide ordered this AM. Will add Norvasc (patient's medication prior to ) as needed if HTN redevelops -Discussed case with Cardiology, recommend echo, EKG and Cardiology consult if those are abnormal VS,Fishbone, I+O VS, Fishbone, I+O Laboratory Tests 03/31/19 17:38 04/01/19 04:43 Vital Signs Date Time Temp Pulse Resp B/P (MAP) Pulse Ox O2 Delivery O2 Flow Rate FiO2 04/01/19 07:38 97.2 82 18 145/91 (109) Room Air 04/01/19 06:25 98 I&O- Last 24 Hours up to 6 AM 04/01/19 06:00 Intake Total 1775 ml Output Total 3150 ml Balance -1375 ml Tiki Portillo MD Apr 01, 2019 09:03
--- NOTE | 2019-04-01 11:05 | ECHO ---
DATE OF PROCEDURE: 04/01/2019 AGE: 38 GENDER: Female. HEIGHT: 65 inches. WEIGHT: 231 pounds. BODY SURFACE AREA: 2.1 m2. INPATIENT: Labor and delivery, Room 3134. REFERRING PHYSICIAN: Tiki Portillo INDICATION: preeclampsia/pulmonary congestion. History of hypertension. MEASUREMENTS: 2-D Measurements: RV: 3.4 cm LV: 5.5 cm Septum: 1.1 cm Posterior wall: 1.1 cm Aortic root: 3.2 cm LA: 3.7 cm LVEF: 65% Doppler Measurements: AV: 1.2 m/s LVOT: 0.95 m/s LVOT diameter; 2.2 cm MV - E 81 A 49 EA ratio 1.6 Early mitral deceleration time: 183 ms E prime medial: 7.5 A prime medial: 6.2 E prime lateral: 12.7 Average E/E prime ratio: 8 PCWP: 11.8 mmHg PV: 0.8 m /s Pulmonary artery acceleration time: 144 ms PASP: 19 mmHg RVSP: 29 mmHg IVC: 2.0 cm COMMENTS: Normal sinus rhythm without intraventricular conduction disturbance. M-mode and two-dimensional echocardiography was performed with pulsed, continuous wave, color flow and tissue Doppler studies. Normal left ventricular size, wall thickness and wall motion. Normal left atrial size and Doppler assessment of LV diastolic function and estimated mean left atrial pressure. Normal right heart chamber sizes and motion and estimated pulmonary arterial pressure. Normal IVC size and collapse against an elevated central venous pressure. Normal-appearing aortic valve without valvular dysfunction. Normal aortic diameters. Normal-appearing mitral valvular apparatus with normal leaflet excursion and no posterior systolic buckling, but very mild insufficiency (physiologic). Normal appearing tricuspid valve with mild insufficiency (physiologic). No apparent intracardiac mass or pericardial effusion. A preliminary report this study was relayed directly to Dr. Portillo, her current attending physician.
[2019-04-01] MEDS ORDERED: NIFEdipine 10 MG CAP PO ONE (11:15)
--- NOTE | 2019-04-01 12:35 | ECGEPIP ---
[facility] Test Date: 2019-04-01 Pat Name: SRUTHI ARECHIGA Department: Room: [place] [address] Gender: Female Skin Toggler: MARCIA : 1980 Requested By: Tiki Galdamez Order Number: [id number] Reading MD: Thor Sullivan Measurements Intervals [place] Rate: 77 P: 65 MN: 146 QRS: 18 QRSD: 97 T: 26 QT: 427 QTc: 483 Interpretive Statements Normal sinus rhythm LA conduction disturbance? Nonspecific ST/T-wave abnormalities No significant change from 03/31/19 Electronically Signed on 04-01-2019 12:35:04 EDT by Thor Sullivan
[2019-04-01] MEDS ORDERED: PERCOCET 5MG/325MG TAB As Ordered ONE (14:45)
[2019-04-01] MEDS ORDERED: oxyCODONE 5MG TAB As Ordered ONE (14:56)
--- NOTE | 2019-04-01 17:30 | IPNPDOC ---
Text Note Date of Service The patient was seen on 04/01/19. NOTE Patient is a 38 yo S/P RLTCD ppd #10 admitted for pre-eclampsia with severe feature HD #2. She is on magnesium. currently without concerns. She received procardia 20mg this AM for severe range BP. She was also started back on maxzide. had normal EKG and echocardiogram this AM. vitals: 139/85, hr: 75, t: 96.7 nad, sitting in bed cta s w/r/r s1s2 s m/g/c le: no edema, patella reflex 3+ UOP > 200cc/hr A/P Patient with pre-eclampsia with severe feature, on mag. patient is diuresing, clinically improving. she will be 24hrs on mag at 2100 tonight. Plan to d/c mag at that time. continue with maxzide. add norvasc in AM. DO Ramona VS,Fishbone, I+O VS, Fishbone, I+O Laboratory Tests 03/31/19 17:38 04/01/19 04:43 Vital Signs Date Time Temp Pulse Resp B/P (MAP) Pulse Ox O2 Delivery O2 Flow Rate FiO2 04/01/19 16:30 75 139/85 (103) Room Air 04/01/19 15:30 18 04/01/19 15:25 96.7 04/01/19 06:25 98 I&O- Last 24 Hours up to 6 AM 04/01/19 06:00 Intake Total 1775 ml Output Total 3150 ml Balance -1375 ml KELEHCI BERNABE DO Apr 01, 2019 17:30
[2019-04-01] MEDS ORDERED: amLODIPine 5 MG TAB PO ONE (19:30)
--- NOTE | 2019-04-01 21:24 | ECGEPIP ---
[facility] - ED Test Date: 2019-03-31 Pat Name: NALINI ARECHIGA Department: Room: - Gender: Female Allergist: krystal : 1980 Requested By: OTONIEL Beltran Order Number: [id number] Reading MD: Eliana Chen Measurements Intervals [place] Rate: 59 P: 22 IN: 150 QRS: 17 QRSD: 92 T: 28 QT: 408 QTc: 406 Interpretive Statements SINUS BRADYCARDIA NONSPECIFIC ST & T-WAVE ABNORMALITY NO PRIOR Electronically Signed on 04-01-2019 21:23:50 EDT by Eliana Chen
[2019-04-02] VITALS (8 sets, daily range): BP systolic 142–161; BP diastolic 88–93
[2019-04-02] MEDS: ACETAMINOPHEN 500 MG TAB PO PRN (00:07)
--- NOTE | 2019-04-02 07:17 | IPNPDOC ---
Text Note Date of Service The patient was seen on 04/02/19. NOTE Patient is a 38 yo S/P RLTCD ppd #11 admitted for pre-eclampsia with severe feature HD #3. She completed 24 hrs of mag therapy and transferred to [facility] overnight. She was given on dose of nrovasc 5mg prior to transfer. Patient is concern that her BP is in he 140's/90's overnight. She denies SOB/DOLAN/change of vision/abdominal pain. had normal EKG and echocardiogram yesterday. vitals: 140s/90s, hr: 70's, afebrile nad, sitting in bed cta s w/r/r s1s2 s m/g/c abd: improved edema on panus. incision c/d/i, no erythema. le: non pitting edema on foot. A/P patient HD #3, clinically improved. lengthy discussion with patient regarding BP goals. 140's/90's is at goal given patient has CHTN and she is asymptomatic. Reviewed her dosing oh [facility] and she was on norvasc 5mg and maxzide 37.5/25 daily dosing. Adjustments in medication takes time. She is at goal at this point. Will reassess patient later this afternoon for possible discharge. VS,Fishbone, I+O VS, Fishbone, I+O Vital Signs Date Time Temp Pulse Resp B/P (MAP) Pulse Ox O2 Delivery O2 Flow Rate FiO2 04/02/19 06:00 98.6 70 18 145/92 (109) 100 Room Air I&O- Last 24 Hours up to 6 AM 04/02/19 06:00 Intake Total 6105 ml Output Total 57392 ml Balance -7070 ml KELECHI BERNABE DO Apr 02, 2019 07:14
[2019-04-02] MEDS ORDERED: amLODIPine 5 MG TAB PO SCH (09:00)
[2019-04-02] MEDS: DYAZIDE 37.5/25 CAP (TRIAM/HCTZ) PO SCH (09:33)
[2019-04-02] MEDS ORDERED: AMLO5TAB6 PO (11:49)
--- NOTE | 2019-04-02 15:29 | DS.PDOC ---
Discharge Summary General Date of Admission Mar 31, 2019 at 22:25 Date of Discharge 02Apr2019 Attending Physician: Tiki Portillo MD Discharge Summary PROCEDURES PERFORMED DURING STAY: Echocardiogram, EKG, CTPA ADMITTING DIAGNOSES: 1. CHTN with superimposed Pre-eclampsia with Severe Features DISCHARGE DIAGNOSES: 1. Same as above COMPLICATIONS/CHIEF COMPLAINT: Shortness of breath, headache HISTORY OF PRESENT ILLNESS: Ms. Blair is a 38y/o s/p RLTCS on who presented to clinic on complaining of shortness of breathe. An x-ray was performed to rule out pneumonia and patient was started on Maxide with plan for close interval followup. On , she called the clinic for her results of her chest x-ray, which noted mild pulmonary edema. She was still experiencing significant shortness of breathe and was directed to the emergency room. At that time, workup was notable for severe range BPs (patient with CHTN, on Labetalol 100mg BID which were previously controlling her BPs in normal range), Platelets 224, AST 67, ALT 81, Cr 0.80 and Spot urine Protein/Creatinine Ratio of at least 0.58. In addition, she had 3+ pitting edema to her knees, 3+ bilateral patella reflexes, significant edema of her abdomen and stretch crum, and crackles on lung exam. Chest CT demonstrated diffuse hazy infiltrates with no evidence of pulmonary embolism. HOSPITAL COURSE: Patient was admitted to the hospital for superimposed pre- eclampsia with severe features. She received 24 hours of magnesium sulfate therapy for seizure prophylaxis. She received 10mg PO LASIX, with excellent diuresis, improved respiratory function, and resolution of all but trace swell ing on the tops of her feet. Given her significant edema, BNP was performed and was 910. Repeat CBC/CMP were notable for stable platelets, renal function, and LFTs. An EKG and echocardiogram were normal and without evidence of cardiomyopathy. Regarding her BPs, patient initially normotensive to mild range on magnesium therapy, but increased to 150s on . She was given her home Maxide and 5mg Norvasc (her home med prior to ) on the evening of . On , she was given both Maxide and Norvasc 5mg in the am. By the onset of action of the medication, her blood pressure was mild range. On the day of discharge, patient's headache had resolved and she denied visual changes or RUQ pain. She was ambulating without difficulty, tolerating a regular diet, and swelling was markedly improved. She continued to have excellent urine output of <150cc/hr. DISCHARGE MEDICATIONS: Maxide 37.5/25mg, Norvasc 5mg daily ALLERGIES: Please see below. PHYSICAL EXAMINATION ON DISCHARGE: VITAL SIGNS: Please see below. Afebrile, mild range BPs. GENERAL: Alert and oriented x3 HEENT: Normocephalic, atraumatic NECK: No JVD CARDIOVASCULAR EXAMINATION: RRR, no murmurs, rubs or gallops RESPIRATORY EXAMINATION: CTAB, no crackles, wheezes or rhonchi ABDOMINAL EXAMINATION: Soft, appropriately tender. Incision clean, dry, intact. Marked improvement in abdominal swelling EXTREMITIES: Trace edema on tops of feet. Otherwise, no edema, erythema or calf tenderness. SKIN: No rashes. NEUROLOGICAL EXAMINATION: CN2-12 grossly intact. Moving all four extremities 2+ reflexes. PSYCHIATRIC EXAMINATION: Normal mood and affect. LABORATORY DATA: Please see below. IMAGING: Echocardiogram - normal cardiac function EKG - normal sinus rhythm CTPA - No pulmonary embolism. Dense interstitial infiltrates. PROGNOSIS: Improved ACTIVITY: As tolerated. 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 She will return this evening and on Thursday for BP check and mediation adjustment as needed. DISPOSITION: Discharge home DISCHARGE INSTRUCTIONS: 1. Return to Labor and Delivery tomorrow morning 04/03, for blood pressure check 2. 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 Return if you experience fever >100.4, soak through a pad an hour x2 hours, have return of difficulty breathing, have return of severe headache not improved with Tylenol ITEMS TO FOLLOWUP ON ON OUTPATIENT: 1. Blood pressure checks and monitoring 2. Chest CT Finding - Interstitial lung disease? DISCHARGE CONDITION: Stable TIME SPENT ON DISCHARGE: Greater than 45 minutes. Vital Signs/I&Os Vital Signs Date Time Temp Pulse Resp B/P (MAP) Pulse Ox O2 Delivery O2 Flow Rate FiO2 04/02/19 10:00 98.0 76 18 144/91 (108) 04/02/19 06:00 100 Room Air I&O- Last 24 Hours up to 6 AM 04/02/19 06:00 Intake Total 6105 ml Output Total 69115 ml Balance -7070 ml Discharge Medications Scheduled Amlodipine Besylate (Amlodipine Besylate) 5 Mg Tablet, 5 MG PO DAILY [id number]/Iron Fum/Folic/Docusate ( 19 Tablet) 1 Each Tablet, 1 TAB PO D AILY, (Reported) Triamterene/Hydrochlorothiazid (Maxzide 37.5 mg-25 mg Tablet) 1 Each Tablet, 1 TAB PO DAILY, (Reported) Scheduled PRN Docusate Sodium (Colace) 100 Mg Capsule, 100 MG PO QHSP PRN for CONSTIPATION Hydrocortisone (Proctozone-Hc) 30 Gm Crm.pe.breana, 0 DOSE TOP Q4HP PRN for DI SCOMFORT Oxycodone/Acetaminophen (Oxycodone-Acetaminophen 5-325) 1 Each Tablet, 1 TAB PO Q4HP PRN for MILD PAIN (PS 1-4) Allergies Coded Allergies: No Known Allergies (Unverified , 03/17/19) Tiki Portillo MD Apr 02, 2019 11:10
== END 2019-04-02 15:55 | disposition home or self-care (01) | DRG 776 ==
LOC: EDBD → M ED 16:55 → UNDOADMIN 20:37 → M ED INP 20:37 → M LDI 22:25 → EDBD 22:25 → M ED INP 23:15 → M LDI 23:15 → M OBS 04-01 21:57
PROVIDERS: ADMIT Obstetrics & Gynecology; ATTEND Obstetrics & Gynecology
DX: O11.5 Pre-existing hypertension with pre-eclampsia, complicating the puerperium (principal); O10.03 Pre-existing essential hypertension complicating the puerperium

== ENCOUNTER 2019-03-31 22:28 | Inpatient (IN) | payer OTHER ==
[~2019-03-31 22:28] MED LIST changes: +MAXZTAB PO
== END 2019-03-31 23:13 | disposition home or self-care (01) | DRG 776 ==
LOC: M LDI 22:28 → EDBD 22:28
PROVIDERS: ADMIT Obstetrics & Gynecology; ATTEND Obstetrics & Gynecology
DX: O14.15 Severe pre-eclampsia, complicating the puerperium (principal)

== ENCOUNTER 2019-04-03 07:04 | Outpatient (CLI) | payer OTHER ==
[~2019-04-03 07:04] MED LIST changes: +AMLO5TAB6 PO
[2019-04-03 07:08] VITALS: BP 154/98
[2019-04-03 07:11] VITALS: BP 142/91
--- NOTE | 2019-04-03 07:58 | IPNPDOC ---
Text Note Date of Service The patient was seen on 04/03/19. NOTE 38y/o discharge yesterday from admission for pre-eclampsia with SF. Patient was discharged on Norvasc 5mg daily and Maxalt 37.5/25mg. This morning, patient is doing well and without complaints. 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 She denies DOLAN/visual changes/RUQ. She continues to breathe easily. VS: 154/98 Repeat 142/91 A/p: 38y/o s/p RLTCS on 15Oct with pre-e with SF s/p 24 hours magnesium, now with mild range BPs. Given long duration of action of Norvasc and patient not yet taken her morning dose, will plan to keep current dosage at this time. Patient to present to [place] clinic tomorrow (04/04) afternoon for repeat BP and further medication adjustment as indicated. -Return precautions discussed -All questions answered to patient's apparent satisfaction Tiki Portillo MD Apr 03, 2019 07:58
== END 2019-04-03 07:40 | disposition home or self-care (01) ==
LOC: M LDO 07:04
PROVIDERS: ATTEND Obstetrics & Gynecology
DX: Z36.89 Encounter for other specified antenatal screening (principal); O14.90 Unspecified pre-eclampsia, unspecified trimester; Z3A.00 Weeks of gestation of pregnancy not specified

== ENCOUNTER 2019-04-09 14:23 | Emergency (ER) | payer OTHER ==
[~2019-04-09] VITALS: Ht 167.6 cm; Wt 92.0 kg
[2019-04-09] MEDS ORDERED: NS 1,000 ML IV ONE (16:00)
[2019-04-09 16:27] LABS: BASO # 0.1 10^3/uL (0.0-0.2); BASO % 0.8 % (0.0-1.0); EOS # 0.1 10^3/uL (0.0-0.5); EOS % 1.8 % (0.0-3.0); HEMATOCRIT 46.6 % (36.0-47.0); HEMOGLOBIN 14.5 g/dl (12.0-15.5); LYMPH # 1.7 10^3/uL (1.5-5.0); LYMPH % 27.8 % (24.0-44.0); MEAN CORPUSCULAR HEMOGLOBIN 27.8 pg (27.0-33.0); MEAN CORPUSCULAR HGB CONC 31.1 g/dl (32.0-36.5); MEAN CORPUSCULAR VOLUME 89.4 fl (80.0-96.0); MONO # 0.4 10^3/uL (0.0-0.8); MONO % 6.1 % (0.0-5.0); NEUTROPHILS # 3.8 10^3/uL (1.5-8.5); NEUTROPHILS % 63.2 % (36.0-66.0); PLATELET COUNT, AUTOMATED 278 10^3/uL (150-450); RED BLOOD COUNT 5.21 10^6/uL (4.00-5.40)
[2019-04-09 16:53] LABS: ERYTHROCYTE SEDIMENTATION RATE 7 mm/hr (0-20)
[2019-04-09 16:56] VITALS: BP 143/88
[2019-04-09 16:56] LABS: ALBUMIN 3.7 GM/DL (3.2-5.2); ALT/SGPT 41 U/L (12-78); BILIRUBIN,DIRECT 0.2 MG/DL (0.0-0.2); BILIRUBIN,TOTAL 0.6 MG/DL (0.2-1.0); BLOOD UREA NITROGEN 14 MG/DL (7-18); C REACTIVE PROTEIN QUANTITATIV 2.96 MG/DL (0.00-0.30); CALCIUM LEVEL 9.6 MG/DL (8.5-10.1); CARBON DIOXIDE LEVEL 32 MEQ/L (21-32); CHLORIDE LEVEL 104 MEQ/L (98-107); CREATININE FOR GFR 0.79 MG/DL (0.55-1.30); GLOMERULAR FILTRATION RATE > 60.0 (>60); GLUCOSE, FASTING 85 MG/DL (70-100); POTASSIUM SERUM 3.8 MEQ/L (3.5-5.1); SODIUM LEVEL 139 MEQ/L (136-145); TOTAL PROTEIN 8.4 GM/DL (6.4-8.2)
== END 2019-04-09 17:51 | disposition home or self-care (01) ==
LOC: M ED 14:23
DX: O99.355 Diseases of the nervous system complicating the puerperium (principal); G44.209 Tension-type headache, unspecified, not intractable; O10.03 Pre-existing essential hypertension complicating the puerperium; Z82.49 Family history of ischemic heart disease and other diseases of the circulatory system; Z79.899 Other long term (current) drug therapy

== ENCOUNTER 2019-06-14 07:44 | Day surgery (SDC) | payer OTHER ==
[~2019-06-14] VITALS: Ht 165.1 cm; Wt 95.3 kg
[~2019-06-14 07:44] MED LIST changes: +ACETAMINOPHEN 650 MG SUPP PR ONE; +LIDOCAINE 1% MDV 20ML VIAL SQ PRN; +LR 1,000 ML IV ONE; +NS 1,000 ML IV SCH; +SODIUM CHLORIDE 0.9% 1000ML IV ONE
[2019-06-14 08:13] LABS: HEMATOCRIT 40.4 % (36.0-47.0); HEMOGLOBIN 13.2 g/dl (12.0-15.5); MEAN CORPUSCULAR HGB CONC 32.7 g/dl (32.0-36.5); MEAN CORPUSCULAR VOLUME 85.6 fl (80.0-96.0); PLATELET COUNT, AUTOMATED 180 10^3/uL (150-450); RED BLOOD COUNT 4.72 10^6/uL (4.00-5.40); WHITE BLOOD COUNT 5.2 10^3/uL (4.0-10.0)
[2019-06-14 08:46] LABS: ALT/SGPT 36 U/L (12-78); BILIRUBIN,TOTAL 0.4 MG/DL (0.2-1.0); BLOOD UREA NITROGEN 10 MG/DL (7-18); CALCIUM LEVEL 9.4 MG/DL (8.5-10.1); CARBON DIOXIDE LEVEL 28 MEQ/L (21-32); CHLORIDE LEVEL 102 MEQ/L (98-107); CREATININE FOR GFR 0.89 MG/DL (0.55-1.30); GLOMERULAR FILTRATION RATE > 60.0 (>60); GLUCOSE, FASTING 124 MG/DL (70-100); HCG, SERUM QUANTITATIVE < 1.0 MIU/ML; POTASSIUM SERUM 3.8 MEQ/L (3.5-5.1); SODIUM LEVEL 140 MEQ/L (136-145); TOTAL PROTEIN 8.4 GM/DL (6.4-8.2)
[2019-06-14] MEDS ORDERED: propofoL 200 MG/20 ML VIAL As Ordered ONE (08:47)
[2019-06-14] MEDS ORDERED: fentaNYL 100 MCG/2 ML INJECTION (J3010) As Ordered ONE ×3 (08:47→11:47)
[2019-06-14] MEDS ORDERED: dexameTHASONE 4 MG/ML 1ML VIAL (J1100) As Ordered ONE (08:47)
[2019-06-14] MEDS ORDERED: ROCURONIUM BROMIDE 50 MG/5 ML VIAL As Ordered ONE ×2 (08:47→10:43)
[2019-06-14] MEDS ORDERED: LIDOCAINE 2% INJ 100 MG/5 ML SDV (FOR ANES.) As Ordered ONE (08:47)
[2019-06-14] MEDS ORDERED: MIDAZOLAM INJ 2 MG/2 ML VIAL (J2250) As Ordered ONE (08:47)
[2019-06-14] MEDS ORDERED: ONDANSETRON 4MG/2ML VIAL (J2405) As Ordered ONE (08:47)
[2019-06-14] MEDS ORDERED: ACETAMINOPHEN 650 MG SUPP As Ordered ONE (09:48)
[2019-06-14] MEDS ORDERED: BUPIVACAINE HCL 0.5% 30 ML VIAL As Ordered ONE (09:48)
[2019-06-14] MEDS ORDERED: KETOROLAC 60 MG/2 ML VIAL (J1885) As Ordered ONE (10:17)
[2019-06-14] MEDS ORDERED: SUGAMMADEX SODIUM 500 MG/5 ML VIAL (BRIDION) As Ordered ONE (10:17)
[2019-06-14] MEDS ORDERED: KETAMINE HCL 200 MG/20 ML VIAL As Ordered ONE (10:39)
[2019-06-14] MEDS ORDERED: oxyCODONE 5MG TAB As Ordered ONE (11:47)
[2019-06-14] MEDS: fentaNYL 100 MCG/2 ML INJECTION (J3010) IV PRN ×3 (11:49→12:00)
[2019-06-14] MEDS: oxyCODONE 5MG TAB PO PRN ×2 (11:52→12:49)
[2019-06-14] MEDS ORDERED: ONDANSETRON 4MG/2ML VIAL (J2405) IV PRN (12:00)
[2019-06-14] MEDS ORDERED: LR 1,000 ML IV SCH (12:00)
[2019-06-14 13:25] VITALS: BP 125/81
--- NOTE | 2019-06-21 13:32 | RO ---
DATE OF PROCEDURE: 06/14/2019 PREOPERATIVE DIAGNOSIS: Satisfied parity. POSTOPERATIVE DIAGNOSIS: Satisfied parity, massive abdominal/pelvic adhesions, fixed bladder to the anterior aspect of the abdominal wall and fixed anterior uterus to the abdominal wall from previous rupture. OPERATION PROPOSED: Laparoscopic bilateral salpingectomy. OPERATION PERFORMED: Operative laparoscopy, bilateral salpingectomy, release of abdominal, peritoneal and omental adhesions, and right paratubal cyst. SURGEON: Dr. Leon Nascimento HYDRAULIC STRAINER OPERATOR: Dr. Ritter for visualization and manipulation. ANESTHESIA: DESCRIPTION OF PROCEDURE: After adequate anesthesia, prepped and draped in the lithotomy position, Fuchs catheter in the bladder draining clear urine, acetaminophen suppository 1300 mg per rectum, sequentials in place, antibiotics not required, a small subumbilical incision was made. Direct entry into the abdomen with a 3 mm scope. No evidence of hemorrhage, perforation or bleeding. Immediately, we reviewed the anatomy and found that the omentum was adherent to the anterior abdominal wall, inferior to where we went in with the scope/trocar. We then put a 5 mm port on the right side and a 5 mm port on the left side and the reviewed the anatomy. We noticed that the bladder was fixed to the anterior abdominal wall. The anterior aspect of the uterus was fixed to the anterior abdominal wall. We had attempted to find the cervix. However, we were unable to establish where the cervix was because it appears that it was sewn into the vagina wall from previous operative procedures. Therefore, we had abandoned putting a tenaculum on the anything vaginally because we could not actually visualize it. Digitally, we could feel the cervix which is somewhere up under the symphysis pubis, but we are unable to establish visualization of the cervix. With that done, we used a harmonic scalpel and took down the omental peritoneal adhesions dropped them back into the cavity giving us a better visualization of the uterus which was markedly retroverted. retroflexed and tented up with the anterior aspect of the uterus fixed to the anterior abdominal wall. We were able to visualize both tubes to the fimbriated end and also there was a small paratubal cyst on the right side. Both tubes were removed to the cornua using the harmonic scalpel and good hemostasis was secured. With that done, the paratubal cyst was also removed and sent off to pathology under separate cover. Reviewing the anatomy, again, the uterus is fixed, the bladder is fixed, the posterior cul-de-sac was barely visualize because it is so retroverted and the uterus is so impacted. We then deflated to 4 mm pressure. We removed the two sidewall ports. Removed the mainstem port under direct vision. Subcuticular stitches to all three ports. Marcaine 0.25%, 2 mL in each incision site. Skin tapes were applied. Fuchs catheter was removed. The patient was sent to recovery in good condition.
== END 2019-06-14 13:45 | disposition home or self-care (01) ==
LOC: M SDC 07:44
PROVIDERS: ATTEND Obstetrics & Gynecology
DX: Z30.2 Encounter for sterilization (principal); N83.8 Other noninflammatory disorders of ovary, fallopian tube and broad ligament; N73.6 Female pelvic peritoneal adhesions (postinfective); I10 Essential (primary) hypertension; Z79.899 Other long term (current) drug therapy
CPT/HCPCS: 36415; 58661; 58662; 80053; 84702; 85027; 86850; 86900; 86901; 88302; 88305; J1100; J1885; J2250; J2405; J3010